=== PATIENT | male | born 1975 | race Caucasian/White ===

== ENCOUNTER 2024-03-13 10:41 | Emergency (ER) | payer OTHER ==
[~2024-03-13] VITALS: Ht 172.7 cm; Wt 118.8 kg
[2024-03-13] MEDS ORDERED: METFORMIN HCL500 M2 PO (11:11)
[2024-03-13] MEDS ORDERED: LIPITOR10 MG PO (11:12)
[2024-03-13] MEDS ORDERED: METOPROLOL SUCC25 MG PO (11:12)
[2024-03-13] MEDS ORDERED: CEPHALEXIN500 M1 PO (11:52)
[2024-03-13 11:58] VITALS: BP 138/78
== END 2024-03-13 12:06 | disposition home or self-care (01) ==
LOC: ED 10:41
DX: L03.116 Cellulitis of left lower limb (principal); E11.9 Type 2 diabetes mellitus without complications; I10 Essential (primary) hypertension; J44.9 Chronic obstructive pulmonary disease, unspecified; I25.2 Old myocardial infarction; Z88.0 Allergy status to penicillin; Z88.8 Allergy status to other drugs, medicaments and biological substances; Z91.048 Other nonmedicinal substance allergy status; Z79.84 Long term (current) use of oral hypoglycemic drugs; Z79.899 Other long term (current) drug therapy
CPT/HCPCS: 73630

== ENCOUNTER 2024-03-29 21:11 | Emergency (ER) | payer OTHER ==
[~2024-03-29] VITALS: Ht 172.7 cm; Wt 114.4 kg
--- OUTSIDE RECORDS SUMMARY | ~2024-03-29 | XMS | Continuity of Care Document ---
Demographics + + + | Address | [address] | | | [place] [address] | + + + | Preferred Language | Unknown | + + + | Marital Status | Never | + + + | Mandaen Affiliation | Unknown | + + + | Race | White | + + + | Ethnic Group | Not or | + + + Author + + + | Author | [facility] | + + + | Organization | [facility] | + + + | Address | [address] | | | [place] [address] | + + + | Phone | | + + + Care Team Providers + + + + | Care Canal Structure Operator Name | Role | Phone | + + + + Unavailable | Unavailable | + + + + Unavailable | Unavailable | + + + + Unavailable | Unavailable | + + + + Allergies No information. Encounters No information. Functional Status No information. Immunizations No information. Medications + + + + | date | description | facility | + + + + | 2024-01-10 00:00 | cephalex[facility] mg [facility] | | [facility] | | + + + + Problems + + + + | date | description | facility | + + + + | 2024-01-10 12:33:09 | Pain in left foot | [facility] | + + + + | 2024-01-29 16:02:10 | Type 2 diabetes mellitus | [facility] | | | with hyperglycemia | | + + + + Procedures No information. Results/Labs +--------+--------+ +---------+--------+---------+ | test | date | facility | value | unit | notes | +--------+--------+ +---------+--------+---------+ + + | Result panel 1 | + + + + + +--------+ + + | EGFR | 2024-01-29 | [facility] | > | | (missing) | | (GLOMERULAR | 16:10:42 | District | | ml/min/1.73m | | | FILTRATION | | Hospital | | ? | | | RATE) | | | | | | | ML/MIN/1.73 | | | | | | | SQ M. | | | | | | + + + +--------+ + + | BILIRUBIN | 2024-01-29 | [facility] | 0.7 | mg/dl | (missing) | | TOTAL | 16::42 | District | | | | | (MG/DL) IN | | Hospital | | | | | SER/PLAS | | | | | | + + + +--------+ + + | CREATININE | 2024-01-29 | [place] | 1.1 | mg/dl | (missing) | | (MG/DL) IN | 16:10:42 | District | | | | | SER/PLAS | | Hospital | | | | + + + +--------+ + + | CHLORIDE | 2024-01-29 | [facility] | 107 | mmol/l | (missing) | | (MMOL/L) IN | 16:10:42 | District | | | | | SER/PLAS | | Hospital | | | | + + + +--------+ + + | BLOOD UREA | 2024-01-29 | [place] | 11 | mg/dl | (missing) | | NITROGEN | 16:10:42 | District | | | | | (BUN) | | Hospital | | | | | (MG/DL) IN | | | | | | | SER/PLAS | | | | | | + + + +--------+ + + | ANION GAP | 2024-01-29 | [facility] | 11.0 | mmol/l | (missing) | | IN SER/PLAS | 16:10:42 | District | | | | | | | Hospital | | | | + + + +--------+ + + | ESTIMATED | 2024-01-29 | [facility] | 114 | mg/dl | | | AVERAGE BLD | 16:10:42 | District | | | | | GLUCOSE | | Hospital | | | | + + + +--------+ + + Social History +--------+ + + | date | description | facility | +--------+ + + Vital Signs + + + +---------+ | date | measurement | value | units | + + + +---------+ | 2024-01-10 00:00 | BMI | 37.86 | kg/m2 | + + + +---------+ | 2024-01-10 00:00 | BP_diastolic | 83 | mmHg | + + + +---------+ | 2024-01-10 00:00 | BP_systolic | 132 | mmHg | + + + +---------+ | 2024-01-10 00:00 | heart_rate | 87 | /min | + + + +---------+ | 2024-01-10 00:00 | o2_saturation | 94 | % | + + + +---------+ | 2024-01-10 00:00 | respiration_rate | 16 | /min | + + + +---------+ | 2024-01-10 00:00 | temperature_metric | 36.78 | C | | | | | | + + + +---------+ | 2024-01-10 00:00 | | 98.2 | F | | | temperature_standar | | | | | d | | | + + + +---------+ | 2024-01-10 00:00 | weight_metric | 112.95 | kg | + + + +---------+ | 2024-01-10 00:00 | weight_standard | 249 | lb | + + + +---------+"
[~2024-03-29 21:11] MED LIST: CEPHALEXIN500 M1 PO; LIPITOR10 MG PO; METFORMIN HCL500 M2 PO; METOPROLOL SUCC25 MG PO
--- OUTSIDE RECORDS SUMMARY | 2024-03-29 21:12 | XMS ---
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 [facility] has no Care Guidelines for this patient. Noelle VISIT COUNT (12 MO.) 2 [facility] TOTAL 2 NOTE: Visits indicate total known visits. ED/[facility] VISIT TRACKING (12 MO.) 03/29/2024 21:12 [facility] [place] Emergency COMPLAINT: - CHEST PAIN 03/13/2024 10:[address] [facility] [place] TYPE: Emergency COMPLAINT: - FOOT SWELLING DIAGNOSES: - Allergy status to other drugs, medicaments and biological substances - Allergy status to penicillin - Cellulitis of left lower limb - Chronic obstructive pulmonary disease, unspecified - Essential (primary) hypertension - termite treater (current) use of oral hypoglycemic drugs - Old myocardial infarction - Other shelter (current) drug therapy - Other nonmedicinal substance allergy status - Pain in left foot - Type 2 diabetes mellitus without complications INPATIENT VISIT TRACKING (12 MO.) No inpatient visits to display in this time frame [email or web address]
[2024-03-29] MEDS ORDERED: ASPIRIN 81 MG CHEW PO ONE (21:15)
[2024-03-29] MEDS ORDERED: MORPHINE SULFATE 4 MG/ML VIAL IV ONE (21:15)
[2024-03-29 21:27] LABS: BASOPHILS 0.5 % (0-2); EOSINOPHILS 0.9 % (0-6); HEMATOCRIT 42.3 % (35.0-50.0); HEMOGLOBIN 15.4 g/dL (12.0-18.0); LYMPHOCYTES 17.1 % (24-44); MCH 31.9 (27-36); MCHC 36.5 g/dl (30-36); MCV 87.5 fl (81-99); MONOCYTES 6.8 % (0-12); NEUTROPHILS 74.7 % (39-80); PLATELET COUNT 194 K/uL (140-440); RBC 4.83 M/ul (4.3-5.7); RDW 13.6 (10.5-15.0)
[2024-03-29 21:39] LABS: INR 1.03 (0.80-1.30); PROTIME 12.8 Sec (11.2-14.2)
[2024-03-29 22:16] LABS: ALBUMIN 3.7 g/dL (3.4-5.0); ALBUMIN/GLOBULIN RATIO 1.06 (1.1-2.4); ANION GAP 15.7 (7-21); BILIRUBIN, TOTAL 0.8 ng/dL (0.2-1.0); BUN/CREATININE RATIO 13.15 (6.0-28.6); CALCIUM 8.2 mg/dL (8.5-10.1); CREATININE, SERUM 1.14 mg/dL (0.70-1.30); MAGNESIUM 2.1 mg/dL (1.8-2.4); POTASSIUM 3.7 mmol/L (3.5-5.1); PROTEIN, TOTAL 7.2 g/dL (6.4-8.2)
[2024-03-29] MEDS ORDERED: CYCLOBENZAPRINE10 MG PO (23:59)
[2024-03-30 00:06] VITALS: BP 131/86
--- NOTE | 2024-03-31 09:42 | EKG ---
[facility] [address] [facility] [place], [place] [address] Signed Sinus tachycardia Left posterior fascicular block Inferior infarct , age undetermined Abnormal ECG No previous ECGs available Confirmed by NIHARIKA MCGRAW MD ([id number]) on 03/31/2024 9:42:33 AM Electronically Signed By: NIHARIKA MCGRAW 03/31/24 0942 PATIENT NAME: MALE,ALISSA Dang SR. Electrocardiogram DATE OF : 75 PHYSICIAN: NIHARIKA MCGRAW REPORT #: [id number] REPORT IS CONFIDENTIAL AND NOT TO BE RELEASED WITHOUT AUTHORIZATION
== END 2024-03-30 00:13 | disposition home or self-care (01) ==
LOC: ED 21:11
PROVIDERS: Family Medicine
DX: R07.89 Other chest pain (principal); I25.2 Old myocardial infarction; E11.9 Type 2 diabetes mellitus without complications; J44.9 Chronic obstructive pulmonary disease, unspecified; Z88.0 Allergy status to penicillin; Z88.8 Allergy status to other drugs, medicaments and biological substances; Z91.09 Other allergy status, other than to drugs and biological substances; Z79.899 Other long term (current) drug therapy; Z79.84 Long term (current) use of oral hypoglycemic drugs
CPT/HCPCS: 36415; 71045; 80053; 83735; 83880; 84484; 85025; 85379; 85610; 93005; 93010; J2270

== ENCOUNTER 2024-07-29 09:37 | Day surgery (SDC) | payer OTHER ==
[~2024-07-29] VITALS: Ht 172.7 cm; Wt 122.3 kg
[~2024-07-29 09:37] MED LIST changes: +ALTOPREV40 MG PO; +ASPIRIN EC325 MG PO; +CEFAZOLIN SODIUM 3 GM/30 ML SYR IV SCH; +CHILDREN'S ASPI81 M1 PO; +CLARITIN10 M2 PO; +CYCLOBENZAPRINE10 MG PO; +FLONASE SENSIM5.9 ML; +IBLOOD GLUCOSE TEST STRIP 1 EA TEST VI PRN; +LACTATED RINGER'S 1,000 ML IV SCH; +LIDOCAINE HCL 1% 5 ML SDV INJ ONE; +TRANEXAMIC ACID 2,000 MG in SODIUM CHLORIDE 0.9% 100 ML IV SCH; +VENTOLIN HFA18 GM INH
[2024-07-29] MEDS ORDERED: OMEPRAZOLE20 MG PO (09:40)
[2024-07-29] MEDS ORDERED: ZESTRIL5 MG PO (09:41)
[2024-07-29] MEDS ORDERED: TRAZODONE HCL50 MG PO (09:41)
[2024-07-29 09:55] VITALS: BP 137/82
[2024-07-29] MEDS ORDERED: Ropivacaine HCl 0.5% 30 ML VIAL ONE (10:04)
[2024-07-29] MEDS ORDERED: DEXAMETHASONE SOD PHOS 4 MG/ML VIAL ONE (10:04)
[2024-07-29] MEDS ORDERED: MIDAZOLAM HCL 2 MG/2 ML VIAL ONE ×2 (10:04→13:41)
[2024-07-29] MEDS ORDERED: LIDOCAINE HCL 2% 5 ML SDV ONE ×2 (10:04→11:02)
[2024-07-29] MEDS ORDERED: HYDROCODONE/ACETA 7.5/325 TAB PO PRN (10:30)
[2024-07-29] MEDS ORDERED: SUCCINYLCHOLINE IN 0.9% NACL 200 MG/10 ML SYRINGE ONE (11:02)
[2024-07-29] MEDS ORDERED: propofoL 200 MG/20 ML VIAL ONE (11:02)
[2024-07-29] MEDS ORDERED: ondansetron HCL 4 MG/2 ML VIAL ONE (11:40)
[2024-07-29] MEDS ORDERED: ESMOLOL HCL 100 MG/10 ML VIAL IV ONE (11:49)
[2024-07-29] MEDS ORDERED: KETOROLAC TROMETHAMINE 30 MG/ML VIAL ONE (12:01)
[2024-07-29] MEDS ORDERED: LACTATED RINGER'S 1,000 ML IV ONE (12:04)
[2024-07-29] MEDS ORDERED: CELECOXIB200 MG PO (12:10)
[2024-07-29] MEDS ORDERED: HYDROCODON-ACE1 EA11 PO (12:10)
[2024-07-29] MEDS ORDERED: ACETAMINOPHEN 1,000 MG/100 ML VIAL ONE (12:25)
[2024-07-29] MEDS ORDERED: fentaNYL citrate 50 MCG/ML SDV ONE (12:27)
[2024-07-29 13:40] LABS: BASOPHILS 0.3 % (0-2); EOSINOPHILS 0.2 % (0-6); HEMATOCRIT 43.9 % (35.0-50.0); HEMOGLOBIN 14.7 g/dL (12.0-18.0); LYMPHOCYTES 7.8 % (24-44); MCH 30.2 (27-36); MCHC 33.5 g/dl (30-36); MCV 90.1 fl (81-99); MONOCYTES 2.6 % (0-12); NEUTROPHILS 89.1 % (39-80); PLATELET COUNT 169 K/uL (140-440); RBC 4.87 M/ul (4.3-5.7); RDW 12.9 (10.5-15.0)
[2024-07-29 13:50] LABS: ALBUMIN 3.7 g/dL (3.4-5.0); ALBUMIN/GLOBULIN RATIO 1.03 (1.1-2.4); ANION GAP 16.4 (7-21); BILIRUBIN, TOTAL 0.5 ng/dL (0.2-1.0); BUN/CREATININE RATIO 9.4 (6.0-28.6); CALCIUM 8.5 mg/dL (8.5-10.1); CREATININE, SERUM 1.17 mg/dL (0.70-1.30); POTASSIUM 5.4 mmol/L (3.5-5.1); PROTEIN, TOTAL 7.3 g/dL (6.4-8.2)
[2024-07-29] MEDS ORDERED: TENECTEPLASE 50 MG/10 ML VIAL IV ONE (14:15)
[2024-07-29] MEDS ORDERED: SEVOFLURANE 250 ML BTL INH ONE (14:41)
[2024-07-29 14:55] VITALS: BP 150/89
[2024-07-29] MEDS ORDERED: IBLOOD GLUCOSE TEST STRIP 1 EA TEST VI PRN (15:30)
[2024-07-29] MEDS ORDERED: fentaNYL citrate 50 MCG/ML SDV IV PRN (15:30)
[2024-07-29] MEDS ORDERED: NALOXONE HCL 0.4 MG SYR IV PRN (15:30)
[2024-07-29] MEDS ORDERED: MIDAZOLAM HCL 2 MG/2 ML VIAL IV PRN (15:30)
[2024-07-29 15:55] VITALS: BP 147/88
[2024-07-29] MEDS ORDERED: CELECOXIB 200 MG CAP PO SCH (17:00)
[2024-07-29 17:06] VITALS: BP 153/87
[2024-07-29] MEDS ORDERED: IBLOOD GLUCOSE TEST STRIP 1 EA TEST XX PRN (17:45)
[2024-07-29] MEDS ORDERED: DEXTROSE 5% 1,000 ML IV PRN (17:45)
[2024-07-29] MEDS ORDERED: TRAZODONE HCL 50 MG TAB PO PRN (17:45)
[2024-07-29] MEDS ORDERED: GLUCAGON,HUMAN RECOMBINANT 1 MG/ML VIAL SUB-Q PRN (17:45)
[2024-07-29] MEDS ORDERED: DEXTROSE 50% 50 ML SYR IV PRN ×2 (17:45)
[2024-07-29 17:55] VITALS: BP 184/98
[2024-07-29 17:58] VITALS: BP 184/98
[2024-07-29] MEDS ORDERED: ALBUTEROL SULFATE 0.042% 1.25 MG/3 ML VIAL INH PRN (18:00)
--- NOTE | 2024-07-29 18:37 | OR ---
[facility] [address] [place], [place] [address] Signed DATE OF OPERATION: 07/29/2024 SURGEON: Malu De Leon MD PREOPERATIVE DIAGNOSIS: SLAP tear, partial rotator cuff tear, right shoulder. POSTOPERATIVE DIAGNOSIS: SLAP tear, partial rotator cuff tear, right shoulder. PROCEDURE PERFORMED: Right shoulder arthroscopy with subacromial decompression and debridement of SLAP tear. ASSISTANTS: Christine Poole PA-C, ANESTHESIA: General. BLOOD LOSS: Minimal. BRIEF HISTORY: Alissa is a 49-year-old gentleman with pain in his shoulder that was not responsive to physical therapy, injections. Risks, benefits, and alternatives of debridement of the SLAP tear were discussed with him and he elected to proceed. Once consent was obtained, he was taken to the operating room. After adequate anesthesia, he was placed on the operating room table. He was placed in a beach chair position and secured. The shoulder was then prepped and draped in a standard sterile fashion. The shoulder was injected with 15 mL 0.25% Marcaine with epinephrine as was the subacromial space. Standard posterior portal was made and the scope was introduced in the shoulder. ARTHROSCOPIC FINDINGS: The glenohumeral surfaces were intact. Biceps and biceps anchor were intact. There was a type 3 SLAP tear. The undersurface of the rotator cuff was intact with the exception of the superior surface of the subscapularis, which was slightly frayed. The subacromial space showed an intact rotator cuff and significant bursitis with thickening and fibrosis throughout. The acromion was type 3. DESCRIPTION OF OPERATION: Electronically Signed By: MALU DE LEON MD 07/29/24 1837 PATIENT NAME: MALE,ALISSA Dang SR OPERATIVE REPORT DATE OF : 75 REPORT #: [id number] PHYSICIAN: MALU DE LEON MD PCP: KERWIN VOSS MD REPORT IS CONFIDENTIAL AND NOT TO BE RELEASED WITHOUT AUTHORIZATION [facility] [address] [place], [place] [address] Signed Diagnostic arthroscopy was undertaken as noted above. Standard anterior portal was established using outside in technique. The shaver and Mitek VAPR were then used to debride the superior labrum down to a stable rim. Again, the biceps anchor itself was intact. The scope was then withdrawn and placed in the subacromial space. Standard lateral portal was established and using combination of Mitek VAPR and the shaver, we did a subacromial decompression with control of bleeders. The undersurface of the acromion was then shaved off so it was flat. The coracoacromial ligament was partially released. The undersurface of the AC joint was in good shape. All bleeders were then cauterized and the scope was withdrawn. The portals were closed with 3-0 nylon and the subacromial space was injected with 60 mg of Toradol. He tolerated the procedure well. All sponge, needle, and instrument counts were correct. Malu De Leon MD BA/MODL /[id number] Copies: ~ Electronically Signed By: MALU DE LEON MD 07/29/24 1837 PATIENT NAME: MALE,ALISSA Dang SR OPERATIVE REPORT DATE OF : 75 REPORT #: [id number] PHYSICIAN: MALU DE LEON MD PCP: KERWIN VOSS MD REPORT IS CONFIDENTIAL AND NOT TO BE RELEASED WITHOUT AUTHORIZATION
--- NOTE | 2024-07-29 20:52 | EKG ---
[facility] [address] [facility] [place], [place] [address] Signed Normal sinus rhythm Incomplete right bundle branch block Inferior infarct (cited on or before 29-MAR-2024) Abnormal ECG When compared with ECG of 15-JUL-2024 08:17, No significant change was found Confirmed by Juaquin Starr MD ([id number]) on 07/29/2024 8:52:37 PM Electronically Signed By: JUAQUIN STARR DO 07/29/242051 PATIENT NAME: MALE,ALISSA Dang SR Electrocardiogram DATE OF : 75 PHYSICIAN: JUAQUIN STARR DO REPORT #: [id number] REPORT IS CONFIDENTIAL AND NOT TO BE RELEASED WITHOUT AUTHORIZATION
[2024-07-29] MEDS ORDERED: INSULIN LISPRO 100 UNIT/ML ML SUB-Q SCH (21:00)
[2024-07-29] MEDS ORDERED: IBLOOD GLUCOSE TEST STRIP 1 EA TEST VI SCH (21:00)
[2024-07-29] MEDS ORDERED: ASPIRIN 325 MG TAB PO SCH (21:00)
[2024-07-30 07:39] VITALS: BP 171/97
[2024-07-30] MEDS ORDERED: lisinopriL 5 MG TAB PO SCH (09:00)
[2024-07-30] MEDS ORDERED: METOPROLOL SUCCINATE 25 MG TABCR PO SCH (09:00)
== END 2024-07-29 20:50 | disposition left against medical advice (07) ==
LOC: DS 09:37 → MS 14:50 → DS 20:50
PROVIDERS: Student in an Organized Health Care Education/Training Program; ATTEND Specialist
PROC: 0RNJ4ZZ Release Right Shoulder Joint, Percutaneous Endoscopic Approach (ICD-10-PCS; principal; 2024-07-29 11:10)
DX: S43.431A Superior glenoid labrum lesion of right shoulder, initial encounter (principal); M75.111 Incomplete rotator cuff tear or rupture of right shoulder, not specified as traumatic; J44.9 Chronic obstructive pulmonary disease, unspecified; I11.0 Hypertensive heart disease with heart failure; I50.9 Heart failure, unspecified; E11.9 Type 2 diabetes mellitus without complications; E78.5 Hyperlipidemia, unspecified; K21.9 Gastro-esophageal reflux disease without esophagitis; G47.00 Insomnia, unspecified; Z79.84 Long term (current) use of oral hypoglycemic drugs; Z79.899 Other long term (current) drug therapy; Z88.0 Allergy status to penicillin; Z88.8 Allergy status to other drugs, medicaments and biological substances; Z91.048 Other nonmedicinal substance allergy status; Z53.29 Procedure and treatment not carried out because of patient's decision for other reasons
CPT/HCPCS: 01630; 36415; 64415; 70450; 70496; 70498; 80053; 85025; 93005; 93010; A9270; J0131; J0330; J0690; J1100; J1885; J2003; J2250; J2405; J2704; J2795; J7121; Q9967

== ENCOUNTER 2024-10-19 10:35 | Emergency (ER) | payer OTHER ==
[~2024-10-19] VITALS: Ht 172.7 cm; Wt 123.4 kg
[~2024-10-19 10:35] MED LIST changes: -CEFAZOLIN SODIUM 3 GM/30 ML SYR IV SCH; +CELECOXIB200 MG PO; +HYDROCODON-ACE1 EA11 PO; -IBLOOD GLUCOSE TEST STRIP 1 EA TEST VI PRN; -LACTATED RINGER'S 1,000 ML IV SCH; -LIDOCAINE HCL 1% 5 ML SDV INJ ONE; +OMEPRAZOLE20 MG PO; -TRANEXAMIC ACID 2,000 MG in SODIUM CHLORIDE 0.9% 100 ML IV SCH; +TRAZODONE HCL50 MG PO; +ZESTRIL5 MG PO
[2024-10-19] MEDS ORDERED: DICLOFENAC35 MG PO (10:53)
[2024-10-19] MEDS ORDERED: FLONASE SENSIM5.9 ML NS (10:54)
[2024-10-19 12:05] VITALS: BP 132/84
== END 2024-10-19 12:05 | disposition home or self-care (01) ==
LOC: ED 10:35
DX: S90.32XA Contusion of left foot, initial encounter (principal); W20.8XXA Other cause of strike by thrown, projected or falling object, initial encounter; I25.2 Old myocardial infarction; E11.9 Type 2 diabetes mellitus without complications; I10 Essential (primary) hypertension; J44.89 Other specified chronic obstructive pulmonary disease; Z88.0 Allergy status to penicillin; Z88.8 Allergy status to other drugs, medicaments and biological substances; Z91.018 Allergy to other foods; Z91.048 Other nonmedicinal substance allergy status; Z79.82 Long term (current) use of aspirin; Z79.84 Long term (current) use of oral hypoglycemic drugs; Z79.899 Other long term (current) drug therapy
CPT/HCPCS: 73630; 99283

== ENCOUNTER 2024-12-15 18:18 | Emergency (ER) | payer OTHER ==
[~2024-12-15] VITALS: Ht 177.8 cm; Wt 122.7 kg
[~2024-12-15 18:18] MED LIST changes: +DICLOFENAC35 MG PO; +FLONASE SENSIM5.9 ML NS
[2024-12-15] MEDS ORDERED: ASPIRIN 81 MG CHEW PO ONE (18:30)
[2024-12-15 18:40] LABS: BASOPHILS 0.4 % (0-2); EOSINOPHILS 1.5 % (0-6); HEMATOCRIT 42.3 % (35.0-50.0); LYMPHOCYTES 30.9 % (24-44); MCH 30.5 (27-36); MCHC 35.5 g/dl (30-36); MCV 85.8 fl (81-99); MONOCYTES 8.4 % (0-12); NEUTROPHILS 58.8 % (39-80); PLATELET COUNT 196 K/uL (140-440); RBC 4.93 M/ul (4.3-5.7); RDW 13.2 (10.5-15.0)
[2024-12-15 18:54] LABS: ALBUMIN 3.9 g/dL (3.4-5.0); ALBUMIN/GLOBULIN RATIO 1.15 (1.1-2.4); ANION GAP 14.6 (7-21); BILIRUBIN, TOTAL 0.5 mg/dL (0.2-1.0); CALCIUM 8.5 mg/dL (8.5-10.1); CREATININE, SERUM 1.09 mg/dL (0.70-1.30); MAGNESIUM 1.8 mg/dL (1.8-2.4); POTASSIUM 3.6 mmol/L (3.5-5.1); PROTEIN, TOTAL 7.3 g/dL (6.4-8.2)
[2024-12-15 20:45] VITALS: BP 143/80
--- NOTE | 2024-12-16 18:05 | EKG ---
[facility] [address] [facility] [place], [place] [address] Signed Sinus tachycardia Possible Inferior infarct (cited on or before 29-MAR-2024) Abnormal ECG When compared with ECG of 29-JUL-2024 13:21, No significant change was found Confirmed by Ezio Conway MD ([id number]) on 12/16/2024 6:05:20 PM Electronically Signed By: EZIO CONWAY MD 12/16/241804 PATIENT NAME: MALE,ALISSA THORNTON Electrocardiogram DATE OF : 75 PHYSICIAN: EZIO CONWAY MD REPORT #: [id number] REPORT IS CONFIDENTIAL AND NOT TO BE RELEASED WITHOUT AUTHORIZATION
== END 2024-12-15 20:45 | disposition left against medical advice (07) ==
LOC: ED 18:18
PROVIDERS: Emergency Medicine
DX: R07.89 Other chest pain (principal); E11.9 Type 2 diabetes mellitus without complications; I10 Essential (primary) hypertension; J45.909 Unspecified asthma, uncomplicated; Z88.0 Allergy status to penicillin; Z88.1 Allergy status to other antibiotic agents; Z88.5 Allergy status to narcotic agent; Z88.9 Allergy status to unspecified drugs, medicaments and biological substances; Z88.8 Allergy status to other drugs, medicaments and biological substances
CPT/HCPCS: 36415; 71045; 80053; 83735; 84484; 85025; 93005; 93010; 99285-25; A9270

== ENCOUNTER 2024-12-26 12:32 | Emergency (ER) | payer OTHER ==
[~2024-12-26] VITALS: Ht 177.8 cm; Wt 122.0 kg
--- OUTSIDE RECORDS SUMMARY | 2024-12-26 12:33 | XMS ---
PreManage Notification: MALEALISSA Security Manager Recruiting Events No recent Security Events currently on file CRITERIA MET - [facility] - 2 Visits in 30 Days CARE PROVIDERS There are no care providers on record at this time. [facility] has no Care Guidelines for this patient. Noelle V[facility] COUNT (12 MO.) [facility] NOTE: Visits indicate total known visits. ED/C VISIT TRACKING (12 MO.) [facility] COMPLAINT: - CHEST PAIN 12/15/2024 18:18 [facility] [place] TYPE: Emergency COMPLAINT: - CHEST PAIN DIAGNOSES: - Allergy status to narcotic agent - Allergy status to other antibiotic agents - Allergy status to other drugs, medicaments and biological substances - Allergy status to penicillin - Allergy status to unspecified drugs, medicaments and biological substances - Essential (primary) hypertension - Other chest pain - Type 2 diabetes mellitus without complications - Unspecified asthma, uncomplicated 10/19/2024 10:35 [facility] [place] TYPE[place] Emergency COMPLAINT: - LEFT FOOT INJURY DIAGNOSES: - Allergy status to other drugs, medicaments and biological substances - Allergy status to penicillin - Allergy to other foods - Contusion of left foot, initial encounter - Essential (primary) hypertension - director long term care (current) use of aspirin - director long term care (current) use of oral hypoglycemic drugs - Old myocardial infarction - Other cause of strike by thrown, projected or falling object, initial encounter - Other care home (current) drug therapy - Other nonmedicinal substance allergy status - Other specified chronic obstructive pulmonary disease - Type 2 diabetes mellitus without complications 03/29/2024 21:12 [facility] [place] TYPE: Emergency COMPLAINT: - CHEST PAIN DIAGNOSES: - Allergy status to other drugs, medicaments and biological substances - Allergy status to penicillin - Chronic obstructive pulmonary disease, unspecified - jail (current) use of oral hypoglycemic drugs - Old myocardial infarction - Other allergy status, other than to drugs and biological substances - Other chest pain - Other longwall machine operator helper (current) drug therapy - Type 2 diabetes mellitus without complications 03/13/2024 10:[address] [facility] [place] TYPE: Emergency COMPLAINT: - FOOT SWELLING DIAGNOSES: - Allergy status to other drugs, medicaments and biological substances - Allergy status to penicillin - Cellulitis of left lower limb - Chronic obstructive pulmonary disease, unspecified - Essential (primary) hypertension - director long term care (current) use of oral hypoglycemic drugs - Old myocardial infarction - Other care home (current) drug therapy - Other nonmedicinal substance allergy status - Pain in left foot - Type 2 diabetes mellitus without complications INPATIENT VISIT TRACKING (12 MO.) No inpatient visits to display in this time frame [email or web address]
[2024-12-26 12:47] LABS: BASOPHILS 0.4 % (0-2); EOSINOPHILS 1.5 % (0-6); HEMATOCRIT 41.8 % (35.0-50.0); HEMOGLOBIN 14.6 g/dL (12.0-18.0); LYMPHOCYTES 29.3 % (24-44); MCHC 34.8 g/dl (30-36); MCV 86.3 fl (81-99); MONOCYTES 8.5 % (0-12); NEUTROPHILS 60.3 % (39-80); PLATELET COUNT 183 K/uL (140-440); RBC 4.85 M/ul (4.3-5.7); RDW 13.4 (10.5-15.0)
[2024-12-26] MEDS ORDERED: ALLEGRA ALLERG180 MG PO (12:48)
[2024-12-26 13:02] LABS: ALBUMIN/GLOBULIN RATIO 1.21 (1.1-2.4); ANION GAP 12.5 (7-21); BILIRUBIN, TOTAL 0.7 mg/dL (0.2-1.0); BUN/CREATININE RATIO 12.84 (6.0-28.6); CALCIUM 8.4 mg/dL (8.5-10.1); CREATININE, SERUM 1.09 mg/dL (0.70-1.30); POTASSIUM 4.5 mmol/L (3.5-5.1); PROTEIN, TOTAL 7.3 g/dL (6.4-8.2)
[2024-12-26 16:04] VITALS: BP 131/79
--- NOTE | 2024-12-27 12:45 | EKG ---
[facility] [address] [facility] [place], [place] [address] Signed Normal sinus rhythm Normal ECG No previous ECGs available Confirmed by Juaquin Starr DO ([id number]) on 12/27/2024 12:44:51 PM Electronically Signed By: JUAQUIN STARR DO 12/27/24 1245 PATIENT NAME: MALE,ALISSA THORNTON SR Electrocardiogram DATE OF : 75 PHYSICIAN: JUAQUIN STARR DO REPORT #: [id number] REPORT IS CONFIDENTIAL AND NOT TO BE RELEASED WITHOUT AUTHORIZATION
== END 2024-12-26 16:04 | disposition home or self-care (01) ==
LOC: ED 12:32
PROVIDERS: Emergency Medicine
DX: R07.9 Chest pain, unspecified (principal); I10 Essential (primary) hypertension; I25.2 Old myocardial infarction; E11.9 Type 2 diabetes mellitus without complications; J44.9 Chronic obstructive pulmonary disease, unspecified; Z88.0 Allergy status to penicillin; Z88.1 Allergy status to other antibiotic agents; Z91.041 Radiographic dye allergy status; Z79.2 Long term (current) use of antibiotics; Z79.899 Other long term (current) drug therapy; Z79.84 Long term (current) use of oral hypoglycemic drugs
CPT/HCPCS: 36415; 71045; 80053; 84484; 85025; 93005; 93010; 99285-25

== ENCOUNTER 2025-02-04 14:24 | Emergency (ER) | payer OTHER ==
[~2025-02-04] VITALS: Ht 177.8 cm; Wt 123.6 kg
[~2025-02-04 14:24] MED LIST changes: +ALLEGRA ALLERG180 MG PO
[2025-02-04] MEDS ORDERED: ASPIRIN 81 MG CHEW PO ONE (14:30)
[2025-02-04 14:37] LABS: BASOPHILS 0.8 % (0.2-1.2); EOSINOPHILS 1.6 % (0.8-7.0); HEMATOCRIT 40.8 % (40.1-51.0); LYMPHOCYTES 29.8 % (21.8-53.1); MCH 29.7 PG (25.7-32.2); MCHC 34.3 g/dL (32.3-36.5); MCV 86.6 fL (79.0-92.2); MONOCYTES 6.6 % (5.3-12.2); PLATELET COUNT 183 K/uL (163-337); RBC 4.71 M/uL (4.63-6.08)
[2025-02-04 14:58] LABS: ALBUMIN 3.9 g/dL (3.4-5.0); ALBUMIN/GLOBULIN RATIO 1.11 (1.1-2.4); BILIRUBIN, TOTAL 0.6 mg/dL (0.2-1.0); BUN/CREATININE RATIO 12.28 (6.0-28.6); CALCIUM 8.9 mg/dL (8.5-10.1); CREATININE, SERUM 1.14 mg/dL (0.70-1.30); MAGNESIUM 1.9 mg/dL (1.8-2.4); PROTEIN, TOTAL 7.4 g/dL (6.4-8.2)
[2025-02-04 18:53] VITALS: BP 155/94
--- NOTE | 2025-02-04 22:19 | EKG ---
[facility] [address] [facility] [place] [address] Signed Sinus tachycardia Incomplete right bundle branch block Borderline ECG When compared with ECG of 26-DEC-2024 12:31, Nonspecific T wave abnormality Inferior leads Confirmed by Kalyn Kingston MD () on 02/04/2025 10:19:05 PM Electronically Signed By: KALYN KINGSTON MD 02/04/25 2219 PATIENT NAME: MALE,ALISSA THORNTON Electrocardiogram DATE OF : 75 PHYSICIAN: KALYN KINGSTON MD REPORT #: [id number] REPORT IS CONFIDENTIAL AND NOT TO BE RELEASED WITHOUT AUTHORIZATION
== END 2025-02-04 18:54 | disposition left against medical advice (07) ==
LOC: ED 14:24
PROVIDERS: Emergency Medicine
DX: I21.4 Non-ST elevation (NSTEMI) myocardial infarction (principal); I10 Essential (primary) hypertension; E11.9 Type 2 diabetes mellitus without complications; Z53.29 Procedure and treatment not carried out because of patient's decision for other reasons; J44.9 Chronic obstructive pulmonary disease, unspecified; J45.909 Unspecified asthma, uncomplicated; Z88.0 Allergy status to penicillin; Z88.8 Allergy status to other drugs, medicaments and biological substances; Z91.041 Radiographic dye allergy status; Z88.1 Allergy status to other antibiotic agents; Z79.899 Other long term (current) drug therapy; Z79.84 Long term (current) use of oral hypoglycemic drugs; Z79.890 Hormone replacement therapy
CPT/HCPCS: 36415; 71045; 80053; 83735; 84484; 85025; 93005; 93010; 99285-25; A9270

== ENCOUNTER 2025-03-07 20:59 | Emergency (ER) | payer OTHER ==
[~2025-03-07] VITALS: Ht 177.8 cm; Wt 123.6 kg
[2025-03-07] MEDS ORDERED: FAMOTIDINE 20 MG TAB PO ONE (21:45)
[2025-03-07] MEDS ORDERED: DEXAMETHASONE SOD PHOS 10 MG/ML VIAL IM ONE (21:45)
[2025-03-07 21:53] LABS: BASOPHILS 0.3 % (0.2-1.2); EOSINOPHILS 0 % (0.8-7.0); LYMPHOCYTES 15.9 % (21.8-53.1); MCH 29.6 PG (25.7-32.2); MCHC 34.2 g/dL (32.3-36.5); MCV 86.6 fL (79.0-92.2); MONOCYTES 10.8 % (5.3-12.2); NEUTROPHILS 72.7 % (34.0-67.9); RBC 4.70 M/uL (4.63-6.08)
[2025-03-07] MEDS ORDERED: methylPREDNISolone 4 MG HOME.PACK PO ONE (23:00)
[2025-03-07 23:24] VITALS: BP 133/88
== END 2025-03-07 23:38 | disposition home or self-care (01) ==
LOC: ED 20:59
PROVIDERS: Family Medicine
DX: R23.2 Flushing (principal); T36.8X5A Adverse effect of other systemic antibiotics, initial encounter; I25.2 Old myocardial infarction; E78.00 Pure hypercholesterolemia, unspecified; E11.9 Type 2 diabetes mellitus without complications; I10 Essential (primary) hypertension; J44.89 Other specified chronic obstructive pulmonary disease; Z86.73 Personal history of transient ischemic attack (TIA), and cerebral infarction without residual deficits; Z95.5 Presence of coronary angioplasty implant and graft; Z95.1 Presence of aortocoronary bypass graft; Z88.0 Allergy status to penicillin; Z88.8 Allergy status to other drugs, medicaments and biological substances; Z91.041 Radiographic dye allergy status; Z91.018 Allergy to other foods; Z79.82 Long term (current) use of aspirin; Z79.84 Long term (current) use of oral hypoglycemic drugs; Z79.1 Long term (current) use of non-steroidal anti-inflammatories (NSAID); Z79.899 Other long term (current) drug therapy
CPT/HCPCS: 36415; 85025; 86140; 96372; 99283; J1100

== ENCOUNTER 2025-03-10 20:06 | Emergency (ER) | payer OTHER ==
[~2025-03-10] VITALS: Ht 177.8 cm; Wt 118.5 kg
--- OUTSIDE RECORDS SUMMARY | 2025-03-10 20:07 | XMS ---
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 [facility] has no Care Guidelines for this patient. No[facility] ([facility] MO.) [facility] NOTE: Visits indicate total known visits. ED/C VISIT TRACKING (12 MO.) 03/10/2025 20:07 [facility] [place] [facility] COMPLAINT: - CHEST PAIN 03/07/2025 21:00 [facility] [place] TYPE: Emergency COMPLAINT: - POSS ALLERGIC REACTION 02/04/2025 14:25 [facility] [place] TYPE: Emergency COMPLAINT: - CHEST PAIN DIAGNOSES: - Allergy status to other antibiotic agents - Allergy status to other drugs, medicaments and biological substances - Allergy status to penicillin - Chest pain, unspecified - Chronic obstructive pulmonary disease, unspecified - Essential (primary) hypertension - Hormone replacement therapy - watermelon inspector (current) use of oral hypoglycemic drugs - Non-ST elevation (NSTEMI) myocardial infarction - Other termite renewal inspector (current) drug therapy - Procedure and treatment not carried out because of patient's decision for other reasons - Radiographic dye allergy status - Type 2 diabetes mellitus without complications - Unspecified asthma, uncomplicated 12/26/2024 12:33 [facility] [place] TYPE: Emergency COMPLAINT: - CHEST PAIN DIAGNOSES: - Allergy status to other antibiotic agents - Allergy status to penicillin - Chest pain, unspecified - Chronic obstructive pulmonary disease, unspecified - Essential (primary) hypertension - watermelon inspector (current) use of antibiotics - group home (current) use of oral hypoglycemic drugs - Old myocardial infarction - Other [facility]dc (current) drug therapy - Radiographic dye allergy status - Type 2 diabetes mellitus without complications 12/15/2024 18:18 [facility] [place] TYPE: Emergency [...] initial encounter - Essential (primary) hypertension - group home (current) use of aspirin - watermelon inspector (current) use of oral hypoglycemic drugs - Old myocardial infarction - Other cause of strike by thrown, projected or falling object, initial encounter - Other termite renewal inspector (current) drug therapy - Other nonmedicinal substance allergy status - Other specified chronic obstructive pulmonary disease - Type 2 diabetes mellitus without complications 03/29/2024 21:12 [facility] [place] TYPE: Emergency COMPLAINT: - CHEST PAIN DIAGNOSES: - Allergy status to other drugs, medicaments and biological substances - Allergy status to penicillin - Chronic obstructive pulmonary disease, unspecified - group home (current) use of oral hypoglycemic drugs - Old myocardial infarction - Other allergy status, other than to drugs and biological substances - Other chest pain - Other termite renewal inspector (current) drug therapy - Type 2 diabetes mellitus without complications 03/13/2024 10:41 [facility] [place] TYPE: Emergency COMPLAINT: - FOOT SWELLING DIAGNOSES: - Allergy status to other drugs, medicaments and biological substances - Allergy status to penicillin - Cellulitis of left lower limb - Chronic obstructive pulmonary disease, unspecified - Essential (primary) hypertension - group home (current) use of oral hypoglycemic drugs - Old myocardial infarction - Other termite renewal inspector (current) drug therapy - Other nonmedicinal substance allergy status - Pain in left foot - Type 2 diabetes mellitus without complications INPATIENT VISIT TRACKING (12 MO.) No inpatient visits to display in this time frame [email or web address]
[2025-03-10] MEDS ORDERED: ASPIRIN 81 MG CHEW PO ONE (20:30)
[2025-03-10 20:35] LABS: BASOPHILS 0.3 % (0.2-1.2); EOSINOPHILS 0 % (0.8-7.0); LYMPHOCYTES 13.5 % (21.8-53.1); MCH 29.4 PG (25.7-32.2); MCHC 34.6 g/dL (32.3-36.5); MCV 84.9 fL (79.0-92.2); MONOCYTES 7.1 % (5.3-12.2); NEUTROPHILS 77.6 % (34.0-67.9); RBC 5.04 M/uL (4.63-6.08)
[2025-03-10 20:56] LABS: ALT (SGPT) 66.0 U/L (14-59); AST (SGOT) 38.0 U/L (15-37); GLOMERULAR FILTRATION RATE,EST 96.0 mL/min (>60); PROTEIN, TOTAL 7.3 g/dL (6.4-8.2); UREA NITROGEN 23.0 mg/dL (7-18)
[2025-03-10 21:42] VITALS: BP 141/88
--- NOTE | 2025-03-11 10:56 | EKG ---
[facility] [address] [facility] [place] [address] Signed Normal sinus rhythm Possible Inferior infarct , age undetermined Cannot rule out Anterior infarct , age undetermined Abnormal ECG When compared with ECG of 04-FEB-2025 14:25, No significant change was found Confirmed by Juaquin Starr DO ([id number]) on 03/11/2025 10:56:10 AM Electronically Signed By: JUAQUIN STARR DO 03/11/25 1056 PATIENT NAME: MALE,ALISSA THORNTON Electrocardiogram DATE OF : 75 PHYSICIAN: JUAQUIN STARR DO REPORT #: [id number] REPORT IS CONFIDENTIAL AND NOT TO BE RELEASED WITHOUT AUTHORIZATION
== END 2025-03-10 21:43 | disposition home or self-care (01) ==
LOC: ED 20:06
PROVIDERS: Family Medicine
DX: R07.89 Other chest pain (principal); E11.9 Type 2 diabetes mellitus without complications; I10 Essential (primary) hypertension; J44.9 Chronic obstructive pulmonary disease, unspecified; Z88.0 Allergy status to penicillin; Z91.041 Radiographic dye allergy status; Z88.1 Allergy status to other antibiotic agents; Z79.899 Other long term (current) drug therapy; Z79.82 Long term (current) use of aspirin; Z79.84 Long term (current) use of oral hypoglycemic drugs
CPT/HCPCS: 36415; 71045; 80053; 83735; 84484; 85025; 85379; 93005; 93010; 99285-25; A9270

== ENCOUNTER 2025-05-09 20:28 | Emergency (ER) | payer OTHER ==
[~2025-05-09] VITALS: Ht 177.8 cm; Wt 124.1 kg
--- OUTSIDE RECORDS SUMMARY | 2025-05-09 20:29 | XMS ---
PreManage Notification: MALEALISSA Security Operator Events No recent Security Events currently on file CRITERIA MET - 6 ED Visits in 6 Months CARE PROVIDERS There are no care providers on record at this time. [facility] has no Care Guidelines for this patient. Noelle VISIT COUNT (12 MO.) 7 [facility] TOTAL 7 NOTE: Visits indicate total known visits. ED/UCC VISIT TRACKING (12 MO.) 05/09/2025 20:28 [facility] [place] TYPE: Emergency COMPLAINT: - CHEST PAIN 03/10/2025 20:07 [facility] [place] TYPE: Emergency COMPLAINT: - CHEST PAIN DIAGNOSES: - Allergy status to other antibiotic agents - Allergy status to penicillin - Chest pain, unspecified - Chronic obstructive pulmonary disease, unspecified - Essential (primary) hypertension - alf (current) use of aspirin - terminal operations supervisor (current) use of oral hypoglycemic drugs - Other chest pain - Other intermediate accountant (current) drug therapy - Radiographic dye allergy status - Type 2 diabetes mellitus without complications 03/07/2025 21:00 [facility] [place] TYPE: Emergency COMPLAINT: - POSS ALLERGIC REACTION DIAGNOSES: - Adverse effect of other systemic antibiotics, initial encounter - Allergy status to other drugs, medicaments and biological substances - Allergy status to penicillin - Allergy to other foods - Allergy, unspecified, initial encounter - Essential (primary) hypertension - [place] - alf (current) use of aspirin - terminal operations supervisor (current) use of non-steroidal anti-inflammatories (NSAID) - terminal operations supervisor (current) use of oral hypoglycemic drugs - Old myocardial infarction - Other halfway (current) drug therapy - Other specified chronic obstructive pulmonary disease - Personal history of transient ischemic attack (TIA), and cerebral infarction without residual deficits - Presence of aortocoronary bypass graft - Presence of coronary angioplasty implant and graft - Pure hypercholesterolemia, unspecified - Radiographic dye allergy status - Type 2 diabetes mellitus without complications 02/04/2025 14:25 [facility] [place] TYPE: Emergency COMPLAINT: - CHEST PAIN DIAGNOSES: - Allergy status to other antibiotic agents - Allergy status to other drugs, medicaments and biological substances - Allergy status to penicillin - Chest pain, unspecified - Chronic obstructive pulmonary disease, unspecified - Essential (primary) hypertension - Hormone replacement therapy - alf (current) use of oral hypoglycemic drugs - Non-ST elevation (NSTEMI) myocardial infarction - Other intermediate accountant (current) drug therapy - Procedure and treatment [...] disease, unspecified - Essential (primary) hypertension - alf (current) use of antibiotics - terminal operations supervisor (current) use of oral hypoglycemic drugs - Old myocardial infarction - Other intermediate accountant (current) drug therapy - Radiographic dye allergy [...] complications - Unspecified asthma, uncomplicated 10/19/2024 10:[address] [facility] [place] TYPE: Emergency COMPLAINT: - LEFT FOOT INJURY DIAGNOSES: - Allergy status to other drugs, medicaments and biological substances - Allergy status to penicillin - Allergy to other foods - Contusion of left foot, initial encounter - Essential (primary) hypertension - alf (current) use of aspirin - terminal operations supervisor (current) use of oral hypoglycemic drugs - Old myocardial infarction - Other cause of strike by thrown, projected or falling object, initial encounter - Other halfway (current) drug therapy - Other nonmedicinal substance allergy status - Other specified chronic obstructive pulmonary disease - Type 2 diabetes mellitus without complications INPATIENT VISIT TRACKING (12 MO.) No inpatient visits to display in this time frame [email or web address]
[2025-05-09 20:43] LABS: BASOPHILS 0.7 % (0.2-1.2); EOSINOPHILS 1.5 % (0.8-7.0); LYMPHOCYTES 31.0 % (21.8-53.1); MCH 29.9 PG (25.7-32.2); MCHC 34.2 g/dL (32.3-36.5); MCV 87.4 fL (79.0-92.2); MONOCYTES 9.0 % (5.3-12.2); NEUTROPHILS 57.6 % (34.0-67.9); RBC 4.35 M/uL (4.63-6.08)
[2025-05-09 21:01] LABS: ALT (SGPT) 37.0 U/L (14-59); AST (SGOT) 21.0 U/L (15-37); GLOMERULAR FILTRATION RATE,EST 80.0 mL/min (>60); PROTEIN, TOTAL 6.6 g/dL (6.4-8.2); UREA NITROGEN 15.0 mg/dL (7-18)
[2025-05-09 23:11] VITALS: BP 133/78
--- NOTE | 2025-05-11 14:16 | EKG ---
[facility] [address] [facility] [place], [place] [address] Signed Normal sinus rhythm Inferior infarct (cited on or before 10-MAR-2025) Abnormal ECG When compared with ECG of 10-MAR-2025 20:13, Inverted T waves have replaced nonspecific T wave abnormality in Inferior leads Confirmed by Juaquin Starr DO ([id number]) on 05/11/2025 2:16:01 PM Electronically Signed By: JUAQUIN STARR DO 05/11/25 1416 PATIENT NAME: MALE,ALISSA THORNTON Electrocardiogram DATE OF : 75 PHYSICIAN: JUAQUIN STARR DO REPORT #: [id number] REPORT IS CONFIDENTIAL AND NOT TO BE RELEASED WITHOUT AUTHORIZATION
== END 2025-05-09 23:06 | disposition home or self-care (01) ==
LOC: ED 20:28
PROVIDERS: Internal Medicine
DX: R07.89 Other chest pain (principal); I25.10 Atherosclerotic heart disease of native coronary artery without angina pectoris; I25.2 Old myocardial infarction; E78.00 Pure hypercholesterolemia, unspecified; E11.9 Type 2 diabetes mellitus without complications; I10 Essential (primary) hypertension; J44.89 Other specified chronic obstructive pulmonary disease; Z95.1 Presence of aortocoronary bypass graft; Z95.5 Presence of coronary angioplasty implant and graft; Z88.0 Allergy status to penicillin; Z91.018 Allergy to other foods; Z91.041 Radiographic dye allergy status; Z88.8 Allergy status to other drugs, medicaments and biological substances; Z91.048 Other nonmedicinal substance allergy status; Z79.82 Long term (current) use of aspirin; Z79.84 Long term (current) use of oral hypoglycemic drugs; Z79.899 Other long term (current) drug therapy
CPT/HCPCS: 36415; 71045; 80053; 83735; 84484; 85025; 93005; 93010; 99285-25

== ENCOUNTER 2025-07-21 16:50 | Emergency (ER) | payer OTHER ==
[~2025-07-21] VITALS: Ht 177.8 cm; Wt 124.0 kg
[2025-07-21] MEDS ORDERED: ICOSAPENT ETHYL1 GM PO (17:02)
[2025-07-21] MEDS ORDERED: DAPAGLIFLOZIN5 MG PO (17:02)
[2025-07-21] MEDS ORDERED: FLUTICASONE-SA1 EAC3 INH (17:02)
[2025-07-21] MEDS ORDERED: LOVASTATIN40 MG PO (17:03)
[2025-07-21] MEDS ORDERED: OMEPRAZOLE40 MG PO (17:03)
[2025-07-21] MEDS ORDERED: METOPROLOL SUCC50 MG PO (17:03)
[2025-07-21 17:11] LABS: BASOPHILS 0.9 % (0.2-1.2); EOSINOPHILS 1.7 % (0.8-7.0); LYMPHOCYTES 28.0 % (21.8-53.1); MCH 28.5 PG (25.7-32.2); MCHC 33.2 g/dL (32.3-36.5); MCV 86.1 fL (79.0-92.2); MONOCYTES 9.1 % (5.3-12.2); NEUTROPHILS 59.9 % (34.0-67.9); RBC 4.59 M/uL (4.63-6.08)
[2025-07-21 18:18] LABS: ALT (SGPT) 48.0 U/L (14-59); AST (SGOT) 25.0 U/L (15-37); GLOMERULAR FILTRATION RATE,EST 107.0 mL/min (>60); PROTEIN, TOTAL 6.9 g/dL (6.4-8.2); UREA NITROGEN 11.0 mg/dL (7-18)
[2025-07-21 19:40] VITALS: BP 144/83
--- NOTE | 2025-07-22 10:58 | EKG ---
[facility] [address] [facility] [place] [address] Signed Normal sinus rhythm Inferior infarct (cited on or before 10-MAR-2025) Abnormal ECG When compared with ECG of 09-MAY-2025 20:32, No significant change was found Confirmed by Juaquin Starr DO ([id number]) on 07/22/2025 10:58:19 AM Electronically Signed By: JUAQUIN STARR DO 07/22/25 1058 PATIENT NAME: MALE,ALISSA THORNTON Electrocardiogram DATE OF : 75 PHYSICIAN: JUAQUIN STARR DO REPORT #: [id number] REPORT IS CONFIDENTIAL AND NOT TO BE RELEASED WITHOUT AUTHORIZATION
== END 2025-07-21 19:40 | disposition home or self-care (01) ==
LOC: ED 16:50
PROVIDERS: Emergency Medicine
DX: R07.9 Chest pain, unspecified (principal); I10 Essential (primary) hypertension; E11.9 Type 2 diabetes mellitus without complications; J45.909 Unspecified asthma, uncomplicated; Z79.51 Long term (current) use of inhaled steroids; Z79.899 Other long term (current) drug therapy; Z79.82 Long term (current) use of aspirin; Z88.0 Allergy status to penicillin; Z88.1 Allergy status to other antibiotic agents; Z91.018 Allergy to other foods; Z91.048 Other nonmedicinal substance allergy status
CPT/HCPCS: 36415; 71045; 80053; 84484; 85025; 93005; 93010; 99285-25